=== PATIENT | female | born 1950 | race Caucasian/White ===

== ENCOUNTER 2017-05-11 09:32 | Day surgery (SDC) | payer MEDICARE ==
[2017-03-30 13:51] VITALS: BMI 39.4
[2017-05-11] MEDS ORDERED: Midazolam 2 MG/2 ML VIAL ONE (13:12)
[2017-05-11] MEDS ORDERED: Propofol 10 mg/ml Inj (20 ML) ONE (13:12)
--- NOTE | 2017-05-11 13:35 | PCM.SURG1 ---
Surgeon's Initial Post Op Note - Surgeon's Notes Surgeon: Dr. Recinos Administrative Support Specialist: None Type of Anesthesia: General LMA Anesthesia Administered By: Dr Pratt Pre-Operative Diagnosis: 66 yo With postmenopausal bleeding Operative Findings: Av uterus area atrophy endometrium Post-Operative Diagnosis: Same as above Operation Performed: Hyseroscopy D and C Specimen/Specimens Removed: emc, ecc Estimated Blood Loss: EBL {In ML}: 5 Blood Products Given: N/A Drains Used: No Drains Post-Op Condition: Good Date of Surgery/Procedure: 05/11/17 Time of Surgery/Procedure: 13:35
[2017-05-11] MEDS: HYDROmorphone 0.5 mg/0.5 ml ISec IVP PRN ×3 (13:50→14:30)
[2017-05-11] MEDS ORDERED: HYDROmorphone 0.5 mg/0.5 ml ISec ONE (14:03)
[2017-05-11] MEDS ORDERED: Lactated Ringer's 1,000 ML IV ONE (15:30)
[2017-05-11 16:05] VITALS: PULSE 51; RESP 16
[2017-05-11 17:09] VITALS: BP 119/56; TEMP 97.1; O2SAT 98
--- NOTE | 2017-05-22 02:57 | OP ---
PROCEDURE DATE: 05/11/2017 PREOPERATIVE FINDINGS: This is a 66-year-old female with thickened endometrium and postmenopausal bleeding. POSTOPERATIVE DIAGNOSES: This is a 66-year-old female with thickened endometrium and postmenopausal bleeding. PROCEDURE: Fractional dilatation and curettage. SURGEON: Ivonne Recinos MD TYPE OF ANESTHESIA: General LMA. FINDINGS: Anteverted uterus approximately 8 weeks' gestation. COMPLICATIONS: None. ESTIMATED BLOOD LOSS: Approximately 5 mL. SPECIMEN: EMC and ECC. DESCRIPTION OF PROCEDURE: The patient was informed of the risks, benefits and alternatives of the procedure. Risk factors included infection, bleeding, damage to surrounding organs, tissue, complications from anesthesia and possible . After informed consent was obtained, she was then taken to the operating room, prepped and draped in the normal sterile fashion, and placed in dorsal lithotomy position. Weighted-speculum was placed into the vagina. The anterior lip of the cervix was grasped with a single-toothed tenaculum. Uterus was gently sounded to approximately 10 cm. Upon complete uterine dilation and the scope was then placed, complete surveillance of the uterine cavity was then performed. In that particular instance, fractional D and C was then performed and submitted to a pathology. Excellent hemostasis was noted. Upon completion, all instruments were removed from the vagina. Instruments and lap counts were correct x2. The patient was then taken to the recovery room in stable condition and instructed to follow up in the office in approximately 2 weeks. Ivonne Recinos MD
== END 2017-05-11 17:05 | disposition home or self-care (01) ==
LOC: C.SDS 09:32
PROVIDERS: ATTEND Obstetrics & Gynecology
DX: N84.0 Polyp of corpus uteri (principal); N95.0 Postmenopausal bleeding; N85.00 Endometrial hyperplasia, unspecified
CPT/HCPCS: 58120; 88305; J1170; J2001; J2250; J2704; J3010; J7120

== ENCOUNTER 2018-11-24 08:21 | Day surgery (SDC) | payer MEDICARE ==
[2018-11-24 08:55] VITALS: BMI 41.3
[2018-11-24] MEDS ORDERED: HYDROmorphone 0.5 mg/0.5 ml ISec IVP PRN (10:19)
[2018-11-24] MEDS ORDERED: Propofol 10 mg/ml Inj (20 ML) ONE (12:10)
[2018-11-24] MEDS ORDERED: Midazolam 2 MG/2 ML VIAL ONE (12:10)
--- NOTE | 2018-11-24 12:41 | PCM.SURG1 ---
Surgeon's Initial Post Op Note - Surgeon's Notes Surgeon: Dr. Recinos Pediatric Allergist: None Type of Anesthesia: General LMA Anesthesia Administered By: Dr. Crenshaw Pre-Operative Diagnosis: 68 yo with Thickened endometrium, postmenopausal spotting Operative Findings: Av uterus with Endometrial polyp Post-Operative Diagnosis: Same as above Operation Performed: Hysteroscopy Myosure D and C Specimen/Specimens Removed: EMC, ECC Estimated Blood Loss: EBL {In ML}: 5 Blood Products Given: N/A Drains Used: No Drains Post-Op Condition: Good Date of Surgery/Procedure: 11/24/18 Time of Surgery/Procedure: 12:41
[2018-11-24] MEDS ORDERED: Lactated Ringer's 1,000 ML IV ONE (14:00)
[2018-11-24 14:52] VITALS: TEMP 98
[2018-11-24 15:22] VITALS: BP 107/55; PULSE 66; RESP 18; O2SAT 100
--- NOTE | 2018-11-25 07:00 | OP ---
PROCEDURE DATE: 11/24/2018 PREOPERATIVE DIAGNOSES: A 68-year-old female with postmenopausal spotting, a thickened endometrium, and endometrial polyp. POSTOPERATIVE DIAGNOSES: A 68-year-old female with postmenopausal spotting, a thickened endometrium, and endometrial polyp. PROCEDURE: Hysteroscopy, MyoSure dilatation and curettage. SURGEON: Ivonne Recinos MD ANESTHESIOLOGIST: Denys Christy MD TYPE OF ANESTHESIA: General LMA. FINDINGS: An anteverted uterus, approximately 5 to 6 weeks gestation, noted to have endometrial polyp. COMPLICATIONS: None. ESTIMATED BLOOD LOSS: 5 mL. IN's AND OUT's: 100 mL. SPECIMEN: EMC, ECC, and polyp. DESCRIPTION OF PROCEDURE: The patient was informed of the risk factors, benefits, and alternatives. Risks factors included infection, bleeding, damage to surrounding organs and tissue, complication from anesthesia and possible . After informed consent was obtained, she was then taken to the operating room, prepped and draped in a normal sterile fashion, placed in dorsal lithotomy position. A weighted speculum was placed into the vagina. The anterior lip of the cervix was grasped with a single-toothed tenaculum. The uterus was gently sounded to approximately 6 cm. Upon complete uterine dilation, the scope was then placed. The hysteroscopy, complete surveillance of the uterine cavity was then performed. The MyoSure was then used and activated in order to remove the endometrial polyp under direct visualization. In that particular instance, the hysteroscope was removed and a fractional D and C was performed, specimen was submitted to the pathology. Excellent hemostasis. Upon completion, all instruments were removed from the vagina. Instrument and lap counts were correct x2. The patient was then taken to the recovery room in stable condition. Ivonne Recinos MD
== END 2018-11-24 15:26 | disposition home or self-care (01) ==
LOC: C.SDS 08:21
PROVIDERS: ATTEND Obstetrics & Gynecology
DX: N84.0 Polyp of corpus uteri (principal); N85.8 Other specified noninflammatory disorders of uterus; N95.0 Postmenopausal bleeding
CPT/HCPCS: 58558; 88305; J2250; J2405; J2704; J3010; J7120